=== PATIENT | male | born 1955 | race Caucasian/White ===

== ENCOUNTER → 2017-06-10 | Outpatient (CLI) | payer BC ==
--- NOTE | 2017-06-10 08:01 | RADIOLOGY REPORT (SQ) ---
EXAM DESCRIPTION: U/S ABDOMEN LIMITED W/O DOP COMPLETED DATE/TIME: 06/10/2017 7:47 am REASON FOR STUDY: OTHER CIRRHOSIS OF LIVER (K74.69) K74.69 OTHER CIRRHOSIS OF LIVER I82.449 ACUTE EMBOLISM AND THROMBOSIS OF UNSPECIFIED TIBIAL COMPARISON: None. TECHNIQUE: Dynamic and static grayscale images acquired of the abdomen and recorded on PACS. Additio nal selected color Doppler and spectral images recorded. LIMITATIONS: Study is limited secondary to body habitus. FINDINGS: PANCREAS: No masses. No peripancreatic edema or fluid collections. LIVER: Echotexture is coarse with increased echogenicity consistent with fatty infiltration. LIVER VASCULATURE: Normal directional flow of the main portal vein and hepatic veins. GALLBLADDER: There are multiple gallstones. No wall thickening. ULTRASOUND-DETECTED SHRESTHA'S SIGN: Negative. INTRAHEPATIC DUCTS AND COMMON DUCT: CBD and intrahepatic ducts normal caliber. No filling defects. INFERIOR VENA CAVA: Obscured by overlying bowel gas. AORTA: Obscured by overlying bowel gas. RIGHT KIDNEY: Normal size. Normal echogenicity. No solid or suspicious masses. No hydronephrosis. No calcifications. PERITONEAL AND RIGHT PLEURAL SPACE: No ascites or effusions. OTHER: No other significant finding. IMPRESSION: 1. Fatty infiltrated liver. 2. Cholelithiasis. No evidence of acute cholecystitis. TECHNICAL DOCUMENTATION: JOB ID: [id number]- All Rights Reserved
--- NOTE | 2017-06-10 09:54 | RADIOLOGY REPORT (SQ) ---
EXAM DESCRIPTION: VENOUS UNILATERAL LOWER COMPLETED DATE/TIME: 06/10/2017 8:29 am REASON FOR STUDY: I82.449 K74.69 OTHER CIRRHOSIS OF LIVER I82.449 ACUTE EMBOLISM AND THROMBOSIS OF UNSPECIFIED TIBIAL COMPARISON: None. TECHNIQUE: Dynamic and static thorpe scale and color images acquired of the right leg venous system. S elected spectral images acquired with additional compression and augmentation maneuvers. The contrala teral common femoral vein and saphenofemoral junction were also imaged. Images stored on PACS. LIMITATIONS: None. FINDINGS: COMMON FEMORAL: Normal phasicity, compression and augmentation. No visualized echogenic ma terial on thorpe scale. No defects on color images. FEMORAL: Normal compression and augmentation. No visualized echogenic material on thorpe scale. No defe cts on color images. POPLITEAL: Normal compression, augmentation. No visualized echogenic material on thorpe scale. No defec ts on color images. CALF VESSELS: Normal compression, augmentation. No visualized echogenic material on thorpe scale. No de fects on color images. GSV and SSV: Normal compression, augmentation. No visualized echogenic material on thorpe scale. No def ects on color images. ANY DEEP VENOUS INSUFFICIENCY: Not evaluated. ANY EVIDENCE OF POPLITEAL CYST: No. OTHER: No other significant finding. CONTRALATERAL COMMON FEMORAL VEIN AND SAPHENOFEMORAL JUNCTION: Normal phasicity, compression and augmentation. No visualized echogenic material on thorpe scale. No de fects on color images. IMPRESSION: NO EVIDENCE DVT OR SVT IN THE RIGHT LEG. TECHNICAL DOCUMENTATION: JOB ID: [id number] [employer]- All Rights Reserved
== END ==
LOC: RAD 06:44
PROVIDERS: ATTEND Internal Medicine Hematology & Oncology
DX: K74.69 Other cirrhosis of liver (principal); I82.449 Acute embolism and thrombosis of unspecified tibial vein
CPT/HCPCS: 76705; 93971